=== PATIENT | male | born 1990 | race Caucasian/White ===

== ENCOUNTER 2024-09-14 07:32 | Emergency (ER) | payer MEDICAID, SELFPAY ==
[2024-09-14 07:32] VITALS: BMI 21.2
[2024-09-14 07:38] VITALS: BP 122/71; PULSE 71; RESP 16; TEMP 36.7; O2SAT 100
--- NOTE | 2024-09-14 08:01 | XR_ITS ---
EXAMINATION: Ankle, left 3 views . Technique: Ankle AP, oblique, lateral 3 views Date and time of exam: September 14, 2024 0813 hours INDICATIONS: Twisting injury to the ankle today, ankle pain. FINDINGS: No acute fracture No dislocation No foreign body IMPRESSION: No acute fracture
--- NOTE | 2024-09-14 08:01 | XR_ITS ---
Examination: Foot, left, 3 views Technique: AP, oblique, lateral views foot, 3 views Date and time of exam: September 14, 2024 0813 hours INDICATIONS: Twisting injury to the foot today, foot pain FINDINGS: Old deformity proximal phalanx fifth digit No acute fracture No foreign body Small old appearing bone density adjacent to the distal lateral anterior calcaneus IMPRESSION: No acute fracture
--- NOTE | 2024-09-14 09:09 | PD.EDANKLE ---
Lower Extremity Injury RME/HPI General Chief Complaint: Ankle/Foot Injury Stated Complaint: LEFT ANKLE INJURY Time Seen by Provider: 09/14/24 07:35 Arrival date/time: 09/14/24 07:32 34-year-old male with no significant medical problems presents the emergency department complaints of left ankle and foot pain after twisting ankle on Saturday while playing football Limitations: no limitations Related Data Home Medications ?Medication ?Instructions ?Recorded ?Confirmed famciclovir 250 mg tablet 250 mg PO BID 01/11/22 01/11/22 omeprazole 20 mg capsule,delayed 20 mg PO QAM 01/11/22 01/11/22 release Previous Rx's ?Medication ?Instructions ?Recorded ibuprofen 800 mg tablet 800 mg PO TID PRN pain #30 tabs 09/14/24 Allergies Allergy/AdvReac Type Severity Reaction Status Date / Time No Known Allergies Allergy Verified 09/14/24 07:34 Review of Systems Review of Systems Systems Reviewed: All systems reviewed, normal except as documented Constitutional Constitutional: Reports system reviewed and no additional complaints, except as documented, Denies fever(s) and Denies headache(s) Eyes Eyes: Reports system reviewed and no additional complaints, except as documented and Denies blurry vision ENT Ears, Nose, Mouth, and Throat: Reports system reviewed and no additional complaints, except as documented, Denies headache(s), Denies nasal congestion and Denies nasal discharge Cardiovascular Cardiovascular: Reports system reviewed and no additional complaints, except as documented, Denies chest pain and Denies dyspnea Respiratory Respiratory: Reports system reviewed and no additional complaints, except as documented, Denies chest congestion, Denies cough and Denies dyspnea Gastrointestinal Gastrointestinal: Reports system reviewed and no additional complaints, except as documented and Denies abdominal pain Musculoskeletal Musculoskeletal: Reports system reviewed and no additional complaints, except as documented, Reports abnormal gait, Reports arthralgias, Denies deformity, Reports joint swelling, Denies numbness, Denies stiffness and Denies tingling Integumentary/Breasts Skin/Breast: Reports system reviewed and no additional complaints, except as documented and Denies rash Neurologic Neurologic: Reports system reviewed and no additional complaints, except as documented, Reports as per HPI, Reports abnormal gait, Denies headache(s), Denies numbness and Denies tingling Past Medical History Social History SMOKING STATUS: Current every day smoker SUBSTANCE USE: marijuana ED Exam General Limitations: Present no limitations General appearance: Present alert and in no apparent distress Head Head exam: Present atraumatic Eye Eye exam: Present normal appearance, PERRL and EOMI ENT ENT exam: Present normal exam, normal oropharynx and mucous membranes moist Neck Neck exam: Present normal inspection, full ROM and trachea midline Chest Chest inspection: Present normal inspection and symmetric chest wall rise Respiratory Respiratory exam: Present normal lung sounds bilaterally Cardiovascular Cardiovascular exam: Present regular rate, normal rhythm and normal heart sounds Abdominal Exam Abdominal exam: Present soft and normal bowel sounds Extremities Exam Extremities exam: Present full ROM, tenderness, normal capillary refill and joint swelling; Absent pedal edema or calf tenderness Back Exam Back exam: Present normal inspection and full ROM Neurological Exam Neurological exam: Present alert, oriented X3 and CN II-XII intact Psychiatric Psychiatric exam: Present normal affect and normal mood Skin Skin exam: Present warm, dry, intact and normal color Course Quality Measures none Orders Category Date Time Status moreno wrap [Splint / Immobilizer] STAT Care 09/14/24 09:12 Active XR ankle comp LT min 3V Stat Exams 09/14/24 08:01 Completed XR foot comp LT min 3V Stat Exams 09/14/24 08:01 Completed Vital Signs Vital signs: Vital Signs Temperature 98.1 F 09/14/24 07:38 Pulse Rate 71 09/14/24 07:38 Respiratory Rate 16 09/14/24 07:38 Blood Pressure 122/71 09/14/24 07:38 Pulse Oximetry (%) 100 09/14/24 07:38 Oxygen Delivery Method Room Air 09/14/24 07:38 O2 saturation 100% room air within normal limits Extremity Injury, Lower MDM Narrative MDM Narrative:: 34-year-old male with no significant medical problems presents the emergency department complaints of left ankle and foot pain after twisting ankle on Saturday while playing football On exam patient well-appearing patient does not appear ill or toxic in no acute distress On exam patient does have swelling left lateral malleolus X-ray of the left ankle and foot obtained no acute fracture dislocation noted Patient placed in Moreno wrap Patient discharged home in no distress to follow-up with primary care doctor in the next 24 to 48 hours and for any worsening symptoms to return to the ER immediately Patient data External records reviewed:: [facility] previous records Clinical information provided by:: patient Social determinants that could affect healthcare access:: none Patient has the following chronic illnesses:: None How is presenting disease/condition affected by chronic disease/condition?: no chronic disease Evaluation data The following diagnostics were reviewed and interpreted by me:: radiology exam(s) Lab and/or radiology exams considered but not ordered:: Radiology obtain Interpretation Summary: Reviewed by me Medications / Prescriptions Medications or Prescriptions considered but not ordered:: Given Medication administrations:: Given Consultations Consultation(s) initiated? (list below): No Diagnosis Extremity Injury, Lower Differential Diagnosis: ankle sprain and strain and ankle fracture Most likely diagnosis given after review of the tests above:: Ankle sprain Admission Indicated Admission indicated?: not indicated Admission Request Was there a request for admission?: No Disposition Plan Disposition Plan: Discharge Discharge Attestation Discharge Attestation: The patient and all family members were given an opportunity to ask questions and understood the discharge instructions. Discharge instructions specifically effects, indications for sooner follow up or return to the emergency department, and the expected course of current diagnosis. Patient condition: Stable Discharge Plan Plan Patient Disposition: HOME (Self Care) Disposition Comment: Stable Prescriptions/Referrals Prescriptions/Med Rec: New ibuprofen 800 mg tablet 800 mg PO TID PRN (Reason: pain) Qty: 30 0RF No Action famciclovir 250 mg tablet 250 mg PO BID Patient Comments: TAKE 1 TABLET BY MOUTH TWICE DAILY omeprazole 20 mg capsule,delayed release(DR/EC) 20 mg PO QAM Patient Comments: TAKE 1 CAPSULE BY MOUTH ONCE DAILY IN THE MORNING BEFORE A MEAL Referrals: Glroy Parr FNP [Primary Care Provider] - 09/15/24 Problem List Clinical Impression: Ankle sprain and strain Patient/Caregiver Discharge Instructions Additional Instructions: Please follow up with your primary care doctor in the next 24-48hrs for any worsening symptoms return here immediately Print Language: Citizen Of [place] Stand Alone Forms: Arabella Award Info., Work/School Release, Patient Portal Info Letter JUAN/LEON Supervising Physician JUAN/LEON Supervising Physician: Dr Andrews
[2024-09-14 09:51] VITALS: BP 126/71; PULSE 76; RESP 19; TEMP 36.9; O2SAT 97
== END 2024-09-14 09:40 | disposition home or self-care (01) ==
PROVIDERS: Emergency Provider Emergency Medicine; PCP Nurse Practitioner Family
DX: S93.402A Sprain of unspecified ligament of left ankle, initial encounter (principal); S96.912A Strain of unspecified muscle and tendon at ankle and foot level, left foot, initial encounter; X50.1XXA Overexertion from prolonged static or awkward postures, initial encounter; Y93.61 Activity, american tackle football
CPT/HCPCS: 73610; 73630; 99283

== ENCOUNTER 2024-10-25 07:42 | Emergency (ER) | payer MEDICAID, SELFPAY ==
[2024-10-25 07:59] VITALS: BP 124/67; PULSE 63; RESP 17; TEMP 36.6; O2SAT 99; BMI 20.7
--- NOTE | 2024-10-25 08:02 | XR_ITS ---
Examination: Shoulder,right, 3 views Technique: Shoulder AP internal rotation, AP external rotation, Y view shoulder, 3 views Exam date and time :October 25, 2024 0806 hrs. Indications: Patient fell 2 days ago with injury to the shoulder, shoulder pain. Findings: No shoulder fracture or dislocation 7 mm AC joint offset No foreign body Impression: 7 mm AC joint offset, clinical correlation advised
--- NOTE | 2024-10-25 08:19 | EDNOTE_ITS ---
Upper Extremity Injury RME/HPI General Chief Complaint: Extremity Injury, Upper Stated Complaint: RIGHT SHOULDER INJURY/PAIN X YESTERDAY Time Seen by Provider: 10/25/24 07:45 Arrival date/time: 10/25/24 07:42 34-year-old male presents to the emergency department today complains of right shoulder pain patient reports he injured his right shoulder yesterday while playing football patient reports he was hit directly in the right shoulder Limitations: no limitations Related Data Home Medications ?Medication ?Instructions ?Recorded ?Confirmed famciclovir 250 mg tablet 250 mg PO BID 01/11/22 01/11/22 omeprazole 20 mg capsule,delayed 20 mg PO QAM 01/11/22 01/11/22 release Previous Rx's ?Medication ?Instructions ?Recorded ibuprofen 800 mg tablet 800 mg PO TID PRN pain #30 tabs 09/14/24 ibuprofen 800 mg tablet 800 mg PO TID PRN pain #30 tabs 10/25/24 Allergies Allergy/AdvReac Type Severity Reaction Status Date / Time No Known Allergies Allergy Verified 10/25/24 07:43 Review of Systems Review of Systems Systems Reviewed: All systems reviewed, normal except as documented Constitutional Constitutional: Reports system reviewed and no additional complaints, except as documented, Denies fever(s) and Denies headache(s) Eyes Eyes: Reports system reviewed and no additional complaints, except as documented and Denies blurry vision ENT Ears, Nose, Mouth, and Throat: Reports system reviewed and no additional complaints, except as documented, Denies headache(s), Denies nasal congestion and Denies nasal discharge Cardiovascular Cardiovascular: Reports system reviewed and no additional complaints, except as documented, Denies chest pain and Denies dyspnea Respiratory Respiratory: Reports system reviewed and no additional complaints, except as documented, Denies chest congestion, Denies cough and Denies dyspnea Gastrointestinal Gastrointestinal: Reports system reviewed and no additional complaints, except as documented and Denies abdominal pain Musculoskeletal Musculoskeletal: Reports system reviewed and no additional complaints, except as documented, Reports arthralgias, Denies deformity, Denies numbness, Reports stiffness and Denies tingling Integumentary/Breasts Skin/Breast: Reports system reviewed and no additional complaints, except as documented and Denies rash Neurologic Neurologic: Reports system reviewed and no additional complaints, except as documented, Reports as per HPI, Denies headache(s), Denies numbness and Denies tingling Past Medical History Social History SMOKING STATUS: Never smoker SUBSTANCE USE: marijuana ED Exam General Limitations: Present no limitations General appearance: Present alert and in no apparent distress Head Head exam: Present atraumatic Eye Eye exam: Present normal appearance, PERRL and EOMI ENT ENT exam: Present normal exam, normal oropharynx and mucous membranes moist Neck Neck exam: Present normal inspection, full ROM and trachea midline Chest Chest inspection: Present normal inspection and symmetric chest wall rise Respiratory Respiratory exam: Present normal lung sounds bilaterally Cardiovascular Cardiovascular exam: Present regular rate, normal rhythm and normal heart sounds Abdominal Exam Abdominal exam: Present soft and normal bowel sounds Extremities Exam Extremities exam: Present full ROM, tenderness and normal capillary refill; Absent joint swelling Back Exam Back exam: Present normal inspection and full ROM Neurological Exam Neurological exam: Present alert, oriented X3 and CN II-XII intact Psychiatric Psychiatric exam: Present normal affect and normal mood Skin Skin exam: Present warm, dry, intact and normal color Course Quality Measures none Orders Category Date Time Status sling [Splint / Immobilizer] STAT Care 10/25/24 08:19 Active XR shoulder RT min 2V Stat Exams 10/25/24 08:02 Completed Vital Signs Vital signs: Vital Signs Temperature 97.9 F 10/25/24 07:59 Pulse Rate 63 10/25/24 07:59 Respiratory Rate 17 10/25/24 07:59 Blood Pressure 124/67 10/25/24 07:59 Pulse Oximetry (%) 99 10/25/24 07:59 Oxygen Delivery Method Room Air 10/25/24 07:59 O2 saturation 99% room air within normal limits Extremity Injury MDM Narrative MDM Narrative:: 34-year-old male presents to the emergency department today complains of right shoulder pain patient reports he injured his right shoulder yesterday while playing football patient reports he was hit directly in the right shoulder On exam patient well-appearing patient does not appear ill or toxic and in no acute distress On exam patient does have tenderness of right shoulder worse movement X-ray of the right shoulder obtained no acute fracture dislocation noted Patient placed in a sling Patient discharged home in no distress to follow-up with primary care doctor in the next 24 to 48 hours and for any worsening symptoms to return to the ER immediately Patient data External records reviewed:: [facility] previous records Clinical information provided by:: patient Social determinants that could affect healthcare access:: none Patient has the following chronic illnesses:: None How is presenting disease/condition affected by chronic disease/condition?: no chronic disease Evaluation data The following diagnostics were reviewed and interpreted by me:: radiology exam(s) Lab and/or radiology exams considered but not ordered:: Radiology obtain Interpretation Summary: Reviewed by me Medications / Prescriptions Medications or Prescriptions considered but not ordered:: Given Medication administrations:: Given Consultations Consultation(s) initiated? (list below): No Diagnosis Upper Extremity Injury Differential Diagnosis: other (Shoulder sprain, shoulder fracture) Most likely diagnosis given after review of the tests above:: Shoulder sprain Admission Indicated Admission indicated?: not indicated Admission Request Was there a request for admission?: No Disposition Plan Disposition Plan: Discharge Discharge Attestation Discharge Attestation: The patient and all family members were given an opportunity to ask questions and understood the discharge instructions. Discharge instructions specifically effects, indications for sooner follow up or return to the emergency department, and the expected course of current diagnosis. Patient condition: Stable Discharge Plan Plan Patient Disposition: HOME (Self Care) Disposition Comment: Stable Prescriptions/Referrals Prescriptions/Med Rec: New ibuprofen 800 mg tablet 800 mg PO TID PRN (Reason: pain) Qty: 30 0RF No Action famciclovir 250 mg tablet 250 mg PO BID Patient Comments: TAKE 1 TABLET BY MOUTH TWICE DAILY omeprazole 20 mg capsule,delayed release(DR/EC) 20 mg PO QAM Patient Comments: TAKE 1 CAPSULE BY MOUTH ONCE DAILY IN THE MORNING BEFORE A MEAL ibuprofen 800 mg tablet 800 mg PO TID PRN (Reason: pain) Qty: 30 0RF Referrals: Glory Parr FNP [Primary Care Provider] - 10/26/24 Problem List Clinical Impression: AC separation Patient/Caregiver Discharge Instructions Education Materials: Treatment for Shoulder Separation Additional Instructions: Please follow up with your primary care doctor in the next 24-48hrs for any worsening symptoms return here immediately If your symptoms persist you may need MRI for further evaluation Print Language: Hebrew Stand Alone Forms: Arabella Award Info., Work/School Release, Patient Portal Info Letter JUAN/LEON Supervising Physician JUAN/LEON Supervising Physician: Dr krueger
== END 2024-10-25 14:04 | disposition home or self-care (01) ==
PROVIDERS: Emergency Provider Emergency Medicine; PCP Nurse Practitioner Family
DX: S43.101A Unspecified dislocation of right acromioclavicular joint, initial encounter (principal); W03.XXXA Other fall on same level due to collision with another person, initial encounter; Y93.61 Activity, american tackle football
CPT/HCPCS: 73030; 99283; A4565

== ENCOUNTER → 2024-11-27 | Outpatient (CLI) | payer MEDICAID, SELFPAY ==
--- NOTE | 2024-11-27 07:00 | XR_ITS ---
MRI shoulder, right, without contrast. Date and time: November 19, 2024 0656 hrs. Comparison July 13, 2023 Indications: Right shoulder pain Clicking joint stiffness 4 weeks after football injury Technique: Multiple axial, sagittal and coronal sections of the shoulder have been obtained. Siemens high-resolution 1.5 Ramona MRI scanner is utilized. Axial fat-suppressed sections, TR 2350, TE 18 T2-weighted coronal fat-saturated images, TR 3500, TE 7100 T1-weighted coronal images, TR 500, TE 15 T2-weighted sagittal fat-saturated images, TR 3500, TE 57 T1-weighted sagittal sections, TR 504, TE 13. Findings: Supraspinatus tendon insertion is intact. Infraspinatus tendon insertion is intact. Subscapularis insertion is intact. Subscapularis bursa is not seen. Long head of the biceps is in the bicipital groove. No definite tear of the biceps superior labral anchor is seen. Retraction of the musculotendinous junction of the rotator cuff is not seen . Tendinosis pattern is not seen. Distance between the acromium and humeral head is 4.3 mm Atrophy of the supraspinatus muscle is not seen. Atrophy of the infraspinatus muscle is not seen. Sagittal sections demonstrate a horizontal acromion. Separation, mild at the AC joint with extensive hemorrhage surrounding the AC joint axial image 15 Pronounced edema in the distal most clavicle and the contiguous margins of the acromium [place]romiale is not identified. Labral margins intact. Bony glenoid fossa on the sagittal sections does not demonstrate osseous defect. Occult fracture or area of avascular necrosis is not seen. Acromioclavicular joint separation is not visible. Defect in the posterolateral margin of the humeral head is not seen Impression: Rotator cuff intact Rotator cuff impingement syndrome Traumatic AC joint separation with hemorrhage at the AC joint Recommend CT scan shoulder without contrast follow-up to exclude nondisplaced fractures distal clavicle
== END | disposition home or self-care (01) ==
PROVIDERS: PCP Orthopaedic Surgery; Referring Provider Orthopaedic Surgery; Visit Provider Orthopaedic Surgery
DX: S43.101A Unspecified dislocation of right acromioclavicular joint, initial encounter (principal); X58.XXXA Exposure to other specified factors, initial encounter; M25.811 Other specified joint disorders, right shoulder
CPT/HCPCS: 73221